=== PATIENT | female | born 1935 | race Caucasian/White ===

== ENCOUNTER 2020-10-20 09:29 | Day surgery (SDC) | payer MEDICARE, MEDICAID, SELFPAY ==
--- NOTE | 2020-10-16 08:02 | MHC.SHP ---
Pre-Procedural Eval Section A The patient is an INPATIENT: No The History & Physical has been completed within 30 days and I have reviewed it.: Yes Section B Chief Complaint: Cataract Left Eye Plan Diagnosis/Plan: Unchanged I have reviewed the history and physical and performed a pertinent physical examination on my patient. No changes have occurred unless specified.
[2020-10-16 16:28] VITALS: BMI 25.6
[2020-10-20 11:12] VITALS: BP 174/61; PULSE 84; RESP 16; TEMP 36.4; O2SAT 97
[2020-10-20 11:22] LABS: Glucose, Whole Blood 306 mg/dL (60-115)
[2020-10-20] MEDS: Tetracaine HCl/PF 0.5% Oph Sol 4 ML DROPS 1 DROP EYE-LEFT (11:26)
[2020-10-20] MEDS: Tropicamide 1 % Ophth Sol 3 ML BTL 1 DROP EYE-LEFT ×3 (11:28→11:41)
[2020-10-20] MEDS: Phenylephrine HCL 2.5% Oph SoL 2 ML BOTTLE 1 DROP EYE-LEFT ×3 (11:32→11:47)
--- NOTE | 2020-10-20 11:52 | P.CONAN_ITS ---
[facility] Past Medical History Medical History (Updated 10/16/20 @ 14:23 by Leigh Palomino) Arthritis Diabetes mellitus Elevated cholesterol Glaucoma HTN (hypertension) Use of cane as ambulatory aid Social History Social History (Updated 10/16/20 @ 14:24 by Leigh Palomino) Patient Tobacco Use Status: Never used Tobacco Are you DNR?: No Advance Directives: No Advance Directives Information Provided: No Advance Directives on File: No Meds Allergies Allergy/AdvReac Type Severity Reaction Status Date / Time No Known Allergies Allergy Verified 10/20/20 10:54 Active Medications: Current Medications Generic Name Dose Route Start Last Admin Trade Name Freq PRN Reason Stop Dose Admin Povidone Iodine 1 appl 10/20/20 10:54 Povidone Iodine 5 % Ophth Soln 30 Ml Bottle EYE-LEFT PREOP PRN Pre-Op Surgical Implant Prophy Home Medications Medication Instructions Recorded Confirmed Last Taken Type atorvastatin 1 tab PO DAILY 10/16/20 10/16/20 Unknown History insulin lispro protamin-lispro 14 unit SUBCUT BID 10/16/20 10/16/20 Unknown History [Humalog Mix 50-50 KwikPen] latanoprost 1 drp BEDTIME 10/16/20 10/16/20 Unknown History lisinopril 1 tab PO DAILY 10/16/20 10/16/20 Unknown History metformin 2 tab PO BID 10/16/20 10/16/20 Unknown History olopatadine 1 drp OPHTHALMIC (EYE) BID 10/16/20 10/16/20 Unknown History pioglitazone 1 tab PO TID 10/16/20 10/16/20 Unknown History Exam Exam Date and Time: October 20, 2020 1152 Height,Weight and Vital Signs: Height 5 ft 2 in Weight 63.503 kg Last Vital Signs Temp 97.6 F 10/20/20 11:12 Pulse 84 10/20/20 11:12 Resp 16 10/20/20 11:12 BP 174/61 H 10/20/20 11:12 Pulse Ox 97 10/20/20 11:12 Pertinent Lab Results Pertinent Lab Results: Laboratory Tests 10/20/20 11:16 POC Glucose 306 H Airway Mallampati Class: II (Missing a coup,e) TM Dist: >3cm Neck ROM: Full Heart: rrr Lungs: cta Assessment and Plan Assessment Anesthesia Assessment: Anesthesia Plan Discussed and Chart Reviewed Final Anesthetic Review NPO: Yes ASA Class: III Final Preanesthetic Review: No Changes in Pt Med Stat and Consent Obtained/Reviewed Patient Risk: Intermediate Procedure Risk: Intermediate Anesthetic Plan Anesthetic Plan: MAC: Disposition: Standard PACU
[2020-10-20] MEDS: Lactated Ringers 500 ML 50 ML IV (11:55)
--- NOTE | 2020-10-20 12:56 | HO.PNOPHT ---
Ophthalmology Procedure Procedure Date of Service: 10/20/20 Ophthalmology Viscoelastic: Healon Duet Dual Pack Pro Ophthalmology Lenses: TECDARLENE [id number] (26) Procedure Notes: PREOPERATIVE DIAGNOSIS: Decreased visual acuity left eye secondary to cataract POSTOPERATIVE DIAGNOSIS: Same PROCEDURE: Left cataract extraction with intraocular lens insertion SURGEON: Cy Dunn M.D. ANESTHESIA: Topical/MAC ESTIMATED BLOOD LOSS: None COMPLICATIONS: None After obtaining informed consent, the patient was brought to the operation room suite and placed in the supine position. After adequate sedation per anesthesia, topical drops of Tetracaine were given to the left eye. The eye was then prepped and draped in the usual sterile fashion. The operating room microscope was then positioned over the operative eye and a lid speculum placed. A paracentesis was created. Viscoelastic was then instilled into the anterior chamber. A three plane incision was then created temporally, utilizing a 2.85 mm keratome. Capsulotomy forceps were then utilized to create a circular tear capsulotomy. Hydrodissection and hydrodelineation were carried out until adequate mobilization of the nucleus occurred. Phacoemulsification was then utilized to remove the dense central nucleus followed by removal of the cortical material utilizing the automated aspiration irrigation unit. Viscoat elastic was instilled into the posterior capsular bag followed by placement of a posterior chamber intraocular lens without difficulty. The residual Viscoat elastic was then removed utilizing the automated IA machine. The wound was check and found to be watertight. The patient tolerated the procedure well and the lid speculum was removed. Intracameral injection of Vigamox 0.1 mL followed by a subtenon injection of Kenalog-40 0.2 mL were administered. The patient will be seen in the a.m.
--- NOTE | 2020-10-20 13:23 | HO.PNOPHT ---
Ophthalmology Procedure Procedure Date of Service: 10/20/20 Ophthalmology Viscoelastic: Healon Duet Dual Pack Pro Ophthalmology Lenses: KENROY [id number] (26)
[2020-10-20 13:24] VITALS: BP 163/83; PULSE 77; RESP 16; TEMP 36.2; O2SAT 97
== END 2020-10-20 13:40 | disposition home or self-care (01) ==
PROVIDERS: PCP Nurse Practitioner Adult Health; Visit Provider Ophthalmology
PROC: (CPT 66985; principal; 2020-10-20 12:10)
DX: H25.12 Age-related nuclear cataract, left eye (principal); H40.052 Ocular hypertension, left eye; H54.7 Unspecified visual loss; I10 Essential (primary) hypertension; E11.9 Type 2 diabetes mellitus without complications; Z79.84 Long term (current) use of oral hypoglycemic drugs; Z79.899 Other long term (current) drug therapy; Z87.891 Personal history of nicotine dependence
CPT/HCPCS: 66984; 82947; J2250; J3010; J3300; V2632

== ENCOUNTER 2020-11-10 07:00 | Day surgery (SDC) | payer MEDICARE, MEDICAID, SELFPAY ==
[2020-10-16 16:30] VITALS: BMI 25.6
--- NOTE | 2020-11-06 07:58 | MHC.SHP ---
Pre-Procedural Eval Section A Date of Service: 11/06/20 The patient is an INPATIENT: No The History & Physical has been completed within 30 days and I have reviewed it.: Yes Section B Chief Complaint: Cataract Right Eye Allergies: Allergies Allergy/AdvReac Type Severity Reaction Status Date / Time No Known Allergies Allergy Verified 10/20/20 10:54 Plan Diagnosis/Plan: Unchanged I have reviewed the history and physical and performed a pertinent physical examination on my patient. No changes have occurred unless specified.
--- NOTE | 2020-11-07 10:46 | HO.ANESPROP2 ---
Documented by User: Alie Guo 11/07/20 10:47 HPI - Anesthesia Eval Consult details Narrative: 85yo F for Right Cataract Extraction IOL Insertion PCP cleared Left eye done 10/18 with MAC: Fentanyl 50, Midaz 0.5 PMFSH Past Medical History Medical History Arthritis Diabetes mellitus Elevated cholesterol Glaucoma HTN (hypertension) Use of cane as ambulatory aid Social History Social History Patient Tobacco Use Status: Never used Tobacco Use of substances other than those prescribed or required for medical reasons: No Are you DNR?: No Advance Directives: No Advance Directives Information Provided: No Advance Directives on File: No Meds Allergies Allergy/AdvReac Type Severity Reaction Status Date / Time No Known Allergies Allergy Verified 10/20/20 10:54 Home Medications Medication Instructions Recorded Confirmed Last Taken Type atorvastatin 1 tab PO DAILY 10/16/20 10/16/20 Unknown History insulin lispro protamin-lispro 14 unit SUBCUT BID 10/16/20 10/16/20 Unknown History [Humalog Mix 50-50 KwikPen] latanoprost 1 drp BEDTIME 10/16/20 10/16/20 Unknown History lisinopril 1 tab PO DAILY 10/16/20 10/16/20 Unknown History metformin 2 tab PO BID 10/16/20 10/16/20 Unknown History olopatadine 1 drp OPHTHALMIC (EYE) BID 10/16/20 10/16/20 Unknown History pioglitazone 1 tab PO TID 10/16/20 10/16/20 Unknown History Exam Exam Date and Time: November 07, 2020 1046 Height,Weight and Vital Signs: Height 5 ft 2 in Weight 63.503 kg Assessment and Plan Assessment Anesthesia Assessment: Chart Reviewed Documented by User: Moncho Walter 11/10/20 09:41 PMFSH Past Medical History Medical History Arthritis Diabetes mellitus Elevated cholesterol Glaucoma HTN (hypertension) Use of cane as ambulatory aid Social History Social History Patient Tobacco Use Status: Never used Tobacco Use of substances other than those prescribed or required for medical reasons: No Are you DNR?: No Advance Directives: No Advance Directives Information Provided: No Advance Directives on File: No Meds Allergies Allergy/AdvReac Type Severity Reaction Status Date / Time No Known Allergies Allergy Verified 10/20/20 10:54 Home Medications Medication Instructions Recorded Confirmed Last Taken Type atorvastatin 1 tab PO DAILY 10/16/20 10/16/20 Unknown History insulin lispro protamin-lispro 14 unit SUBCUT BID 10/16/20 10/16/20 Unknown History [Humalog Mix 50-50 KwikPen] latanoprost 1 drp BEDTIME 10/16/20 10/16/20 Unknown History lisinopril 1 tab PO DAILY 10/16/20 10/16/20 Unknown History metformin 2 tab PO BID 10/16/20 10/16/20 Unknown History olopatadine 1 drp OPHTHALMIC (EYE) BID 10/16/20 10/16/20 Unknown History pioglitazone 1 tab PO TID 10/16/20 10/16/20 Unknown History Exam Airway Mallampati Class: III TM Dist: >3cm Neck ROM: Full Loose/Missing/Broken Teeth: No Heart: rrr+[id number] Lungs: cta b/l Assessment and Plan Assessment Anesthesia Assessment: Anesthesia Plan Discussed, PAT Visit and Chart Reviewed Final Anesthetic Review NPO: Yes ASA Class: III Final Preanesthetic Review: No Changes in Pt Med Stat, Meds/Allgs Chart Reviewed, Consent Obtained/Reviewed and Anes Risks/Benef Reviewed Patient Risk: Intermediate Procedure Risk: Low Assessment/Block/Sedation in SS: Assess/Block/Sedation-SS Anesthetic Plan Anesthetic Plan: MAC: and Agree w/ Assess. and Plan Disposition: Standard PACU
[2020-11-10 08:22] VITALS: BP 144/75; PULSE 89; RESP 18; TEMP 36.1; O2SAT 97
[2020-11-10 08:23] LABS: Glucose, Whole Blood 156 mg/dL (60-115)
[2020-11-10] MEDS: Lactated Ringers 500 ML 50 ML IV (08:34)
[2020-11-10] MEDS: Tetracaine HCl/PF 0.5% Oph Sol 4 ML DROPS 1 DROP EYE-RIGHT (08:34)
[2020-11-10] MEDS: Tropicamide 1 % Ophth Sol 3 ML BTL 1 DROP EYE-RIGHT ×3 (08:36→08:44)
[2020-11-10] MEDS: Phenylephrine HCL 2.5% Oph SoL 2 ML BOTTLE 1 DROP EYE-RIGHT ×3 (08:38→08:46)
--- NOTE | 2020-11-10 10:49 | HO.PNOPHT ---
Ophthalmology Procedure Procedure Date of Service: 11/10/20 Ophthalmology Viscoelastic: Healon Duet Dual Pack Pro Ophthalmology Lenses: TECNIS [id number] (26.5) Procedure Notes: PREOPERATIVE DIAGNOSIS: Decreased visual acuity right eye secondary to cataract POSTOPERATIVE DIAGNOSIS: Same PROCEDURE: Right cataract extraction with intraocular lens insertion SURGEON: Cy Dunn M.D. ANESTHESIA: Topical/MAC ESTIMATED BLOOD LOSS: None COMPLICATIONS: None After obtaining informed consent, the patient was brought to the operating room suite and placed in the supine position. After adequate sedation per anesthesia, topical drops of Tetracaine were given to the right eye. The eye was then prepped and draped in the usual sterile fashion. The operating room microscope was then positioned over the operative eye and a lid speculum placed. A paracentesis was created. Viscoelastic was then instilled into the anterior chamber. A three plane incision was then created temporally, utilizing a 2.85 mm keratome. Capsulotomy forceps were then utilized to create a circular tear capsulotomy. Hydrodissection and hydrodelineation were carried out until adequate mobilization of the nucleus occurred. Phacoemulsification was then utilized to remove the dense central nucleus followed by removal of the cortical material utilizing the automated aspiration irrigation unit. Viscoelastic was instilled into the posterior capsular bag followed by placement of a posterior chamber intraocular lens without difficulty. The residual Viscoelastic was then removed utilizing the automated IA machine. The wound was checked and found to be watertight. The patient tolerated the procedure well and the lid speculum was removed. Intracameral injection of Vigamox 0.1 mL followed by a subtenon injection of Kenalog-40 0.2 mL were administered. The patient will be seen in the a.m.
[2020-11-10 11:12] VITALS: BP 132/52; PULSE 85; RESP 11; TEMP 36.1; O2SAT 95
[2020-11-10 11:25] VITALS: BP 123/62; PULSE 80; RESP 16; O2SAT 96
[2020-11-10] MEDS: Acetaminophen 325 MG TABLET 650 MG PO (11:27)
== END 2020-11-10 11:49 | disposition home or self-care (01) ==
PROVIDERS: PCP Nurse Practitioner Adult Health; Visit Provider Ophthalmology
PROC: (CPT 66985; principal; 2020-11-10 11:10)
DX: H25.11 Age-related nuclear cataract, right eye (principal); H54.7 Unspecified visual loss; H40.9 Unspecified glaucoma; H40.052 Ocular hypertension, left eye; H35.3132 Nonexudative age-related macular degeneration, bilateral, intermediate dry stage; E11.9 Type 2 diabetes mellitus without complications; I10 Essential (primary) hypertension; E78.00 Pure hypercholesterolemia, unspecified; Z79.4 Long term (current) use of insulin; Z79.899 Other long term (current) drug therapy
CPT/HCPCS: 66984; 82947; J2250; J3010; J3300; V2632